=== PATIENT | female | born 2000 | race Caucasian/White ===

== ENCOUNTER → 2023-10-24 14:46 | Outpatient (REF) | payer OTHER, SELFPAY | LOC: RAD 14:46 | PROVIDERS: ATTENDING PHYSICIAN Internal Medicine | DX: E07.89 Other specified disorders of thyroid (principal) | CPT/HCPCS: 76536 ==

== ENCOUNTER 2024-01-01 16:52 | Emergency (ER) | payer OTHER, SELFPAY ==
[2024-01-01 16:54] VITALS: BP 165/112
[2024-01-01 17:12] LABS: % Basophils 0.5 % (0-2); % Eosinophils 1.1 % (0-6); % Immature Granulocytes 0.4 % (0-0.5); % Lymphocytes 27.4 % (20.5-51.1); % Monocytes 4.6 % (1.7-9.3); Absolute Basophils 0.1 10^3/uL (0-0.2); Absolute Eosinophils 0.1 10^3/uL (0-0.7); Absolute Immature Granulocytes 0.1 10^3/uL (0-0.05); Absolute Lymphocytes 3.2 10^3/uL (1.2-3.4); Absolute Monocytes 0.6 10^3/uL (0.1-0.6); Absolute Neutrophils 7.8 10^3/uL (1.4-6.5); Hematocrit 40.2 % (37.0-47.0); Hemoglobin 12.9 g/dL (12.0-16.0); Mean Corp Hgb Conc. 32.1 g/dL (33.0-37.0); Mean Corpuscular Hgb 26.1 pg (27.0-31.0); Mean Corpuscular Volume 81.4 fL (81.0-99.0); Mean Platelet Volume 10.7 fL (7.4-10.4); Nucleated Red Blood Cells % 0 %; Platelet Count 350 10^3/uL (130-400); Red Blood Cell Count 4.94 10^6/uL (4.20-5.40); Red Cell Dist. Width 14.3 % (11.5-14.5); White Blood Cell Count 11.8 10^3/uL (4.8-10.8)
[2024-01-01 17:32] LABS: ALT (SGPT) 41 U/L (0-35); AST (SGOT) 62 U/L (14-36); Albumin 4.5 g/dl (3.5-5.0); Alkaline Phosphatase 112 U/L (38-126); Blood Urea Nitrogen 14 mg/dl (7-17); Calcium 9.7 mg/dl (8.4-10.2); Carbon Dioxide 23 mmol/L (22-30); Chloride 108 mmol/L (98-107); Glucose 108 mg/dl (70-99); HCG, Serum Qualitative Screen Negative; Lipase 77 U/L (23-300); Sodium 138 mmol/L (135-145); Total Bilirubin 0.5 mg/dl (0.2-1.3); Total Protein 8.1 g/dl (6.3-8.2); eGFR > 60.00
--- NOTE | 2024-01-01 20:33 | ED.GENMED ---
Addendum entered and electronically signed by BINU Ramos 01/05/24 12:36:
Patient's urine culture positive for E. coli as per the patient at home. She complains of mild cramping denies any urinary frequency urgency. No fever chills nausea vomiting back pain. A prescription for Keflex 500 mg twice daily for the next 7
days was sent to patient's pharmacy. Discussed close outpatient follow-up family doctor to ensure resolution of symptoms.
Original Note:
History of Present Illness
General
Chief Complaint: Abdominal Pain
Source: patient
Exam Limitations: none
Time Seen by Provider: 01/01/24 19:50
Travel History
Have you had any contact with someone who has COVID-19?: No
Do you have any symptoms of coronavirus? Fever > 100 degrees, chills, cough, shortness of breath, sore throat, loss of taste or smell, muscle aches, or headache?: No
History of Present Illness
History of Present Illness:
This is a 23 year old female that comes in with c/o right sided abd pain. States that over the weekend she started with right sided pain. States that over the past 2 days the pain has gotten worse. states that she was nauseated. Denies any fever,
chills, gail pain, SOB, vomiting, diarrhea, headache, dizziness, urinary burning.
Past History
Past History
ED Past Medical History: GERD and Other (ADHD)
ED Past Surgical History: None
Social History
Tobacco: Vaping (Former)
Alcohol: Occasional
Drug: None
Personal: Single
Living: with family
Review of Systems
Review of Systems
All Other Systems: ROS reviewed and negative except as documented in HPI and ROS
Constitutional: Reports no symptoms; Denies fever or chills
EENT: Reports no symptoms
Respiratory: Reports no symptoms; Denies cough or trouble breathing
Cardiac: Reports no symptoms; Denies chest pain
ABD/GI: Reports abdominal pain and nausea; Denies vomiting or diarrhea
: Reports no symptoms; Denies dysuria, frequency or urgency
Musculoskeletal: Reports no symptoms
Skin: Reports no symptoms
Neurological: Reports no symptoms; Denies dizzy or headache
Psychiatric: Reports no symptoms
Phy Exam
General Physical Exam
General Presentation: well appearing and no apparent distress
General age: appears stated age
General Skin: warm and dry
General Habitus: normal
General Mental: alert
General Hydration: appears well hydrated
ENT Exam
ENT Exam: TM's normal, pharynx normal and neck supple
Eye Exam
Eye Exam: EOMI
Cardiovascular Exam
Cardiovascular Exam: regular rate/rhythm, no edema and normal peripheral pulses
Pulmonary Exam
Pulmonary Exam: lungs clear, no respiratory distress, no rales, chest non tender, no crackles, no rhonchi, no wheezing and no cough
Gastrointestinal Exam
Gastrointestinal Exam: soft, no organomegaly, no pulsatile mass, non distended, tender (Slight RLQ tenderness with palpation, Negative for rebound tenderness) and other (Obese, hypoactive bowel sounds)
Musculoskeletal Exam
Musculoskeletal Exam: full ROM and no edema
Skin Exam
Skin Exam: normal color, warm/dry, no rash and no petechia
Psychiatric Exam
Psychiatric Exam: normal mood/affect
Course
Orders/Labs/Results
Orders:
Orders
01/01/24 16:57
Test Result ONCE
01/01/24 17:01
Complete Blood Count/With Diff Urgent
Comprehensive Metabolic Panel Urgent
HCG, Serum Qualitative Screen Urgent
Lipase Urgent
01/01/24 20:33
CT Abd/pelvis W Iv Cont Urgent
Comment:
Reason For Exam: Right lower abd pain
0.9% Sodium Chloride 1000 ml [Nss] 1,000 ml IV BOLUS
01/01/24 22:30
Urinalysis Reflex To Culture Urgent
Date Specimen was Collected: 01/01/24
Time Specimen was Collected: 16:57
01/02/24 00:00
US Pelvis Only (non-obstetric) Urgent
Reason For Exam: right lower abd pain
01/02/24 01:16
Urine Microscopic Reflex Cult Urgent
Urine Culture Urgent
DANGELO Source: U
Specimen Description:
Date Specimen was Collected: 01/01/24
Time Specimen was Collected: 16:57
Abnormal Lab Results
01/01/24 01/02/24
17:01 01:16
WBC 11.8 H 10^3/uL
(4.8-10.8)
MCH 26.1 L pg
(27.0-31.0)
MCHC 32.1 L g/dL
(33.0-37.0)
MPV 10.7 H fL
(7.4-10.4)
Abs Immat Gran (auto) 0.1 H 10^3/uL
(0-0.05)
Absolute Neuts (auto) 7.8 H 10^3/uL
(1.4-6.5)
Chloride 108 H mmol/L
(98-107)
Glucose 108 H mg/dl
(70-99)
AST 62 H U/L
(14-36)
ALT 41 H U/L
(0-35)
Leukocyte Esterase Rfl Trace A
(Negative)
Urine RBC 3-6 A /HPF
(0-2)
Urine WBC (Reflex) 21-25 A /HPF
(0-5)
Urine Bacteria (Reflex) Many A
(Negative)
01/01/24 17:01
01/01/24 17:01
WBC slightly elevated. Glucose nonfasting. AST/ALT elevation. Lipase normal at 77, HCG negative.
Urine contaminated with >30 squamous cells. will wait for culture to treat
Vital Signs
Initial and Last Documented VS:
Initial Vital Signs
Temp Pulse Resp BP Pulse Ox
98.3 F 97 14 165/112 96
01/01/24 16:54 01/01/24 16:54 01/01/24 16:54 01/01/24 16:54 01/01/24 16:54
Last Documented Vital Signs
Temp Pulse Resp BP Pulse Ox
98.3 F 81 18 132/120 98
01/01/24 16:54 01/01/24 21:06 01/01/24 21:06 01/02/24 00:00 01/02/24 01:28
MDM/Problems Addressed
Differential Diagnosis Includes:
Ovarian cyst, Appendicitis
MDM/Problems Addressed:
This is a 23 year old female that comes in with c/o RLQ pain. States that this pain started over the weekend and in the pat 2 days the pain has gotten worse
Will get labs. US ovaries and CT scan. Will also give IV fluids
Back into see patent. explained that her CT scan and US are both normal. Will discharge patient home.
Chronic conditions affecting care:
NA
Acute Exacerbation and/or Progression of Chronic Illness:
NA
*Radiology
Radiology exam reviewed: radiology read reviewed (CT-No acute pathology of the abdomen or pelvis identified. Moderate fecal material throughout the colon. US= Limited transabdominal exam. No acute findings. Uterus appears within normal limits.
Endometrial complex measures 3mm in thickness which is within normal limits. No appreciable abnormal ) and all reviewed NAD by ED Provider (US cont- endometrial doppler vascularity. Bilateral ovaries appear normal with bilaterally symmetric doppler
blood flow. No adnexal mass. No pelvic free fluid. )
*Pulse Oximetry
Patient hypoxic: no
*EKG
Interpreted by ED Provider?: NA
Rate: EKG- N/A
*Fire Chief'S Aide Interpretation
Rate: Fire Chief'S Aide- N/A
*Critical Care Note
Total Time (30-74mins, 75-104mins- exclusive of procedures): Not Applicable
ED Attending Note
-
Portions of this chart may have been created with voice recognition software.� Occasional wrong word or��sound alike� substitutions may have occurred due to the inherent limitations of voice recognition software.
Discharge Plan
Departure
Patient Disposition: Home (Routine Discharge)
Date of Disposition: 01/02/24
Time of Disposition: 01:21
Patient with high blood pressure during this ER visit?: Yes
Condition: Good
Covid-19: Not Applicable
Discharge Problem:
Right lower quadrant abdominal pain
Instructions: Abdominal Pain, BLOOD PRESSURE
Prescriptions:
No Action
No Current Medications
0
Referrals:
Sera Cerda, DO [Family Provider] - Call in 1-3 days for appt
Activity Restrictions/Additional Instructions:
As discussed, your blood work shows that your liver enzymes are slightly elevated. Your Ultrasound and CT scan are normal. You may Tylenol or Ibuprofen for any pain. Follow up with the family doctor. IF YOU HAVE ANY OTHER CONCERNS PLEASE RETURN TO
THE EMEGENCY ROOM
Interventions
Interventions:
*Risk Screen - Suicide Last Done: 01/01/24 16:54
*General Assessment Last Done: 01/01/24 16:54
*Neglect/Abuse Screening Last Done: 01/01/24 16:54
ED- Fall Risk Assessment Last Done: 01/02/24 01:25
*ED COVID-19 Vaccine History Last Done: 01/02/24 01:25
*Nursing Disposition Last Done: 01/02/24 01:25
IU-Hhpcsj-Ygxbslafqs Assessment Last Done: 01/01/24 21:06
Discharge Date and Time
Discharge Date/Time: 01/02/24 01:32
Print Language: [id number]
[2024-01-01] MEDS: NSS 1000 IV (21:05)
[2024-01-01 21:06] VITALS: BP 150/91; BMI 56.5
[2024-01-01 21:36] VITALS: BP 160/101
[2024-01-01 22:17] VITALS: BP 158/92
[2024-01-01 23:05] VITALS: BP 156/96
[2024-01-02] VITALS: BP 132/120
[2024-01-02 01:44] LABS: Urine Albumin Negative (Neg - Trace); Urine Bilirubin Negative (Negative); Urine Character Clear (Clear); Urine Color Yellow; Urine Glucose Negative (Negative); Urine Ketone Negative (Negative); Urine Leukocyte Trace (Negative); Urine Nitrite Negative (Negative); Urine Occult Blood Negative (Negative); Urine Urobilinogen Negative (Neg - 1+); Urine pH 6.5 (5.0-9.0)
[2024-01-02 02:10] LABS: Urine Amorphous Seen; Urine Bacteria Many (Negative); Urine Squamous Cell >30 /LPF (Few)
[2024-01-02 02:13] LABS: Urine Mucus Moderate; Urine Urothelial Cell >30 /LPF (FEW); Urine White Cell 21-25 /HPF (0-5)
== END 2024-01-02 01:32 | disposition home or self-care (01) ==
LOC: EMR 16:52
PROVIDERS: Emergency Medicine; EMERGENCY PHYSICIAN Emergency Medicine; FAMILY PHYSICIAN Family Medicine
DX: R10.31 Right lower quadrant pain (principal); R11.0 Nausea; R03.0 Elevated blood-pressure reading, without diagnosis of hypertension; K21.9 Gastro-esophageal reflux disease without esophagitis; F90.9 Attention-deficit hyperactivity disorder, unspecified type; F17.290 Nicotine dependence, other tobacco product, uncomplicated
CPT/HCPCS: 99285; 96360; 74177; 76856; 80053; 81003; 81015; 83690; 84703; 85025; 87077; 87086; 87186; Q9967